=== PATIENT | female | born 1945 | race Caucasian/White ===

== ENCOUNTER 2020-07-19 11:32 | Observation (INO) ==
[~2020-07-19 11:32] MED LIST: Bacitracin 50,000 UNIT, Polymyxin B Sulfate 500,000 UNIT, Sodium Chloride IRRigation 1,... IR ONE
[2020-07-19] MEDS ORDERED: CeFAZolin Syr 2,000MG/20 ML 2,000 MG/20 ML SYRINGE IVPB ONE (11:48)
[2020-07-19] MEDS ORDERED: Ringers Solution, Lactated 1,000 ML IVC SCH ×2 (12:00→16:14)
[2020-07-19] MEDS ORDERED: Lidocaine -MPF 2% 2 ML VIAL ONE (12:20)
[2020-07-19] MEDS ORDERED: Ondansetron 4 MG/2 ML VIAL ONE (12:20)
[2020-07-19] MEDS ORDERED: *HR* FentaNYL (PF) 100 MCG/2 ML VIAL ONE ×2 (12:20→14:33)
[2020-07-19] MEDS ORDERED: *HR* Succinylcholine 200 MG/10 ML VIAL IVP ONE (12:20)
[2020-07-19] MEDS ORDERED: *HR* Rocuronium Bromide 50 MG/5 ML VIAL ONE (12:20)
[2020-07-19] MEDS ORDERED: Lidocaine -MPF 4% 5 ML AMPUL ONE (12:20)
[2020-07-19] MEDS ORDERED: *HR* Propofol 200 MG/20 ML VIAL IVP ONE (12:20)
[2020-07-19] MEDS ORDERED: Acetaminophen IV 1,000 MG/100 ML BAG IVPB ONE (13:21)
[2020-07-19] MEDS ORDERED: Neostigmine Methylsulfate 3 MG/3 ML SYRINGE ONE (15:10)
[2020-07-19] MEDS ORDERED: *HR* HYDROMORPHONE 2 MG/ML VIAL ONE (15:15)
[2020-07-19] MEDS ORDERED: Scopolamine Patch 1.5 MG PATCH.TD72 TP PRN (16:14)
[2020-07-19] MEDS ORDERED: Ondansetron 4 MG/2 ML VIAL IVP PRN (16:14)
[2020-07-19] MEDS ORDERED: *HR* OxyCODONE Immed Rel 5 MG TABLET PO PRN (16:14)
[2020-07-19] MEDS ORDERED: Naloxone 0.4 MG/ML INJ IVP PRN (16:14)
[2020-07-19] MEDS ORDERED: Acetaminophen 325 MG TABLET PO PRN (16:14)
[2020-07-19] MEDS: *HR* Metformin 500 MG TABLET PO SCH (17:16)
[2020-07-19] MEDS: *HR* Glimepiride 2 MG TABLET PO SCH (17:17)
[2020-07-19] MEDS: CeFAZolin 2 GM/120 ML BAG IVPB SCH (20:24)
[2020-07-20] MEDS: CeFAZolin 2 GM/120 ML BAG IVPB SCH (03:08)
[2020-07-20] MEDS: *HR* HYDROcodone/Acet 5/325 mg TABLET PO PRN ×2 (03:12→22:00)
[2020-07-20] MEDS: Aspirin 81 MG TAB.CHEW PO SCH (07:41)
[2020-07-20] MEDS: amLODIPine 5 MG TABLET PO SCH (07:41)
[2020-07-20] MEDS: Cholecalciferol (D-3) 1,000 UNIT (25MCG) TABLET PO SCH (07:41)
[2020-07-20] MEDS: FLUoxetine 20 MG CAPSULE PO SCH (07:42)
[2020-07-20] MEDS: *HR* Metformin 500 MG TABLET PO SCH ×2 (07:44→17:06)
[2020-07-20] MEDS: *HR* Glimepiride 2 MG TABLET PO SCH ×2 (07:44→17:06)
[2020-07-20] MEDS ORDERED: Simethicone 80 MG TAB.CHEW PO PRN (11:00)
[2020-07-21 07:18] VITALS: BP 138/76
[2020-07-21] MEDS: Aspirin 81 MG TAB.CHEW PO SCH (07:28)
[2020-07-21] MEDS: *HR* Metformin 500 MG TABLET PO SCH (07:28)
[2020-07-21] MEDS: Cholecalciferol (D-3) 1,000 UNIT (25MCG) TABLET PO SCH (07:28)
[2020-07-21] MEDS: amLODIPine 5 MG TABLET PO SCH (07:29)
[2020-07-21] MEDS: FLUoxetine 20 MG CAPSULE PO SCH (07:29)
[2020-07-21] MEDS: *HR* Glimepiride 2 MG TABLET PO SCH (07:29)
[2020-07-21] MEDS: *HR* HYDROcodone/Acet 5/325 mg TABLET PO PRN (09:32)
== END 2020-07-21 09:59 | disposition home or self-care (01) ==
LOC: 3NENU 11:32 → SAMDAY 11:32 → 3NENU 16:10
PROVIDERS: ADMIT Orthopaedic Surgery Orthopaedic Surgery of the Spine; ATTEND Orthopaedic Surgery Orthopaedic Surgery of the Spine